=== PATIENT | female | born 1975 | race Two or more races ===

== ENCOUNTER 2024-02-14 13:24 | Emergency (ER) | payer OTHER ==
[~2024-02-14] VITALS: Ht 170.2 cm; Wt 72.6 kg
[2024-02-14] MEDS ORDERED: METHYLPREDNISOLO4 M1 PO (13:45)
[2024-02-14] MEDS ORDERED: LAMICTAL100 MG PO (13:45)
[2024-02-14] MEDS ORDERED: CEFTRIAXONE SODIUM 1,000 MG VIAL IM STA (14:43)
[2024-02-14] MEDS ORDERED: METHYLPREDNISOLONE SOD SUCC 125 MG VIAL IM STA (14:44)
[2024-02-14] MEDS ORDERED: DIPHENHYDRAMINE HCL 50 MG/ML VIAL 1ML IM STA (14:44)
[2024-02-14] MEDS ORDERED: METHYLPREDNISOLONE SOD SUCC 125 MG VIAL ONE (14:56)
[2024-02-14] MEDS ORDERED: DIPHENHYDRAMINE HCL 50 MG/ML VIAL 1ML ONE (14:56)
[2024-02-14] MEDS ORDERED: WATER FOR INJ.,BACTERIOSTATIC 30 ML VIAL IJ ONE (14:56)
[2024-02-14] MEDS ORDERED: CEFTRIAXONE SODIUM 1,000 MG VIAL ONE (14:56)
[2024-02-14 15:23] LABS: HEMATOCRIT 43.2 % (36.0-45.00); MEAN CELL VOLUME 86.8 fL (80.00-100.00); MEAN CORPUSCULAR HEMOGLOBIN 30.1 pg (27.00-32.0); MEAN CORPUSCULAR HGB CONC 34.7 g/dl (32.0-36.0); PLATELET COUNT 321 K/uL (150-450); RED BLOOD COUNT 4.98 M/uL (4.00-6.00); RED CELL DISTRIBUTION WIDTH 13.2 % (11.5-14.5)
[2024-02-14 15:31] LABS: ERYTHROCYTE SEDIMENTATION RATE 12 mm/hr
== END 2024-02-14 16:30 | disposition home or self-care (01) ==
LOC: ER 13:25
PROVIDERS: General Practice
DX: R21 Rash and other nonspecific skin eruption (principal)

== ENCOUNTER 2024-04-02 13:19 | Outpatient (CLI) | payer OTHER ==
[~2024-04-02 13:19] MED LIST: LAMICTAL100 MG PO; METHYLPREDNISOLO4 M1 PO
== END 2024-04-02 13:21 | disposition home or self-care (01) ==
LOC: SONOGRAMA 13:19
PROVIDERS: ATTEND Pathology Anatomic Pathology & Clinical Pathology
DX: D34 Benign neoplasm of thyroid gland (principal); E78.9 Disorder of lipoprotein metabolism, unspecified; E04.2 Nontoxic multinodular goiter